=== PATIENT | male | born 1990 | race African-American/Black ===

== ENCOUNTER 2016-12-07 03:06 | Emergency (ER) | payer OTHER ==
[~2016-12-07] VITALS: Ht 177.8 cm; Wt 100.0 kg
[~2016-12-07 03:06] MED LIST: ALBU8.5H3 IH
[2016-12-07 04:21] VITALS: BP 126/88
== END 2016-12-07 04:24 | disposition home or self-care (01) ==
LOC: EMS 03:07
DX: L03.112 Cellulitis of left axilla (principal); J45.909 Unspecified asthma, uncomplicated; F17.210 Nicotine dependence, cigarettes, uncomplicated; F12.90 Cannabis use, unspecified, uncomplicated
CPT/HCPCS: 99283

== ENCOUNTER 2019-11-06 18:30 | Emergency (ER) | payer OTHER ==
[~2019-11-06] VITALS: Ht 177.8 cm; Wt 95.5 kg
[2019-11-06 19:55] VITALS: BP 121/57
[2019-11-06] MEDS ORDERED: IBUPROFEN 600 MG TABLET PO ONE (20:15)
== END 2019-11-06 20:55 | disposition home or self-care (01) ==
LOC: EMS 18:32
DX: S42.92XA Fracture of left shoulder girdle, part unspecified, initial encounter for closed fracture (principal); R03.0 Elevated blood-pressure reading, without diagnosis of hypertension; J45.909 Unspecified asthma, uncomplicated; F17.210 Nicotine dependence, cigarettes, uncomplicated; F12.90 Cannabis use, unspecified, uncomplicated; Z79.899 Other long term (current) drug therapy; Z98.890 Other specified postprocedural states; X58.XXXA Exposure to other specified factors, initial encounter; Y93.89 Activity, other specified; Y92.89 Other specified places as the place of occurrence of the external cause; Y99.8 Other external cause status
CPT/HCPCS: 29105

== ENCOUNTER 2020-10-18 18:19 | Emergency (ER) | payer OTHER ==
[2020-10-18] MEDS ORDERED: MORPHINE SULFATE 4 MG/ML SYRINGE ONE (18:25)
[2020-10-18] MEDS ORDERED: ONDANSETRON HCL 4 MG/2 ML VIAL ONE (18:25)
[2020-10-18 18:32] VITALS: BP 159/109
[2020-10-18] MEDS ORDERED: CeFAZolin 1 GM/DEXTROSE 50 ML IV ONE ×2 (18:36→18:45)
[2020-10-18] MEDS ORDERED: PERTUSS(ACELL),DIPH,TET VAC/PF 0.5 ML VIAL IM ONE ×2 (18:37→18:45)
[2020-10-18] MEDS ORDERED: MORPHINE SULFATE 4 MG/ML SYRINGE IVP ONE (18:45)
[2020-10-18] MEDS ORDERED: ONDANSETRON HCL 4 MG/2 ML VIAL IVP ONE (18:45)
== END 2020-10-18 19:04 | disposition short-term general hospital (02) ==
LOC: EMS 18:19
DX: S01.23XA Puncture wound without foreign body of nose, initial encounter (principal); S01.21XA Laceration without foreign body of nose, initial encounter; J45.909 Unspecified asthma, uncomplicated; F17.210 Nicotine dependence, cigarettes, uncomplicated; F12.90 Cannabis use, unspecified, uncomplicated; W34.09XA Accidental discharge from other specified firearms, initial encounter; Y93.89 Activity, other specified; Y92.89 Other specified places as the place of occurrence of the external cause; Y99.8 Other external cause status
CPT/HCPCS: 90471; 90715; 96365; 96375; 99291; J0690; J2270; J2405

== ENCOUNTER 2021-06-19 12:54 | Emergency (ER) | payer OTHER ==
[~2021-06-19] VITALS: Ht 177.8 cm; Wt 93.2 kg
[2021-06-19] MEDS ORDERED: LIDOCAINE 1% 10 ML VIAL SQ ONE (13:30)
[2021-06-19] MEDS ORDERED: CEPHALEXIN MONOHYDRATE 500 MG CAPSULE PO ONE (15:30)
[2021-06-19 15:53] VITALS: BP 125/68
== END 2021-06-19 15:54 | disposition home or self-care (01) ==
LOC: EMS 13:12
DX: S71.112A Laceration without foreign body, left thigh, initial encounter (principal); T81.31XA Disruption of external operation (surgical) wound, not elsewhere classified, initial encounter; F17.210 Nicotine dependence, cigarettes, uncomplicated; J45.909 Unspecified asthma, uncomplicated; Z79.899 Other long term (current) drug therapy; Y84.8 Other medical procedures as the cause of abnormal reaction of the patient, or of later complication, without mention of misadventure at the time of the procedure; Y92.89 Other specified places as the place of occurrence of the external cause
CPT/HCPCS: 12002; 73700; 99284; J3490

== ENCOUNTER 2023-12-12 12:01 | Emergency (ER) | payer OTHER ==
[~2023-12-12] VITALS: Ht 180.3 cm; Wt 93.2 kg
[2023-12-12 12:11] VITALS: TEMP 98
[2023-12-12] MEDS: PERTUSS(ACELL),DIPH,TET VAC/PF 0.5 ML SYRINGE IM. ONE (14:31)
[2023-12-12] MEDS: LIDOCAINE 1% 10 ML VIAL ID ONE (14:31)
[2023-12-12] MEDS: HYDROCODONE/ACETAMINOPHEN 5-325 MG TABLET PO ONE (17:31)
[2023-12-12 18:30] VITALS: BP 136/88; PULSE 92; RESP 18
[2023-12-12] MEDS ORDERED: CEPH-558 PO (19:16)
[2023-12-12] MEDS: BACITRACIN 0.9 GM PACKET OINTMENT TP ONE (19:23)
[2023-12-12] MEDS: CEPHALEXIN MONOHYDRATE 500 MG CAPSULE PO ONE (19:23)
[2023-12-12] MEDS ORDERED: HYDR-4723 PO (19:33)
== END 2023-12-12 19:58 | disposition home or self-care (01) ==
LOC: EMS 12:01
DX: S61.511A Laceration without foreign body of right wrist, initial encounter (principal); F17.210 Nicotine dependence, cigarettes, uncomplicated; F12.90 Cannabis use, unspecified, uncomplicated; J45.909 Unspecified asthma, uncomplicated; W26.8XXA Contact with other sharp object(s), not elsewhere classified, initial encounter; Y93.89 Activity, other specified; Y92.89 Other specified places as the place of occurrence of the external cause; Y99.8 Other external cause status
CPT/HCPCS: 99284; 73100; 90715; 90471; 12002; J3490